=== PATIENT | female | born 1975 | race Two or more races ===

== ENCOUNTER 2025-01-15 15:19 | Emergency (ER) | payer MEDICAID, SELFPAY ==
[2025-01-15 15:31] VITALS: BP 118/73; PULSE 75; RESP 20; TEMP 36.7; O2SAT 95; BMI 26.8
--- NOTE | 2025-01-15 15:34 | XR_ITS ---
Examination: PA lateral chest 2 views TECHNIQUE: Upright PA lateral chest 2 views Exam date and time: January 15, 2025 1603 hours INDICATIONS: Chest pain shortness of breath beginning 2 days ago FINDINGS: Normal heart size. Lungs are clear. The osseous structures are intact IMPRESSION: No active disease
[2025-01-15] MEDS: DEXAMETHASONE SOD PHOS INJ 10 MG/ML VIAL PO (15:40)
[2025-01-15] MEDS: ALBUTEROL/IPRATROPIUM (Duoneb) RT SOL 3 ML NEBU INH (15:43)
[2025-01-15 15:46] VITALS: PULSE 78; RESP 15; O2SAT 98
--- NOTE | 2025-01-15 16:54 | PD.ASTHM ---
ED Asthma RME/HPI General Chief Complaint: Shortness of Breath/Dyspnea Stated Complaint: DYSPNEA X 2 DAYS,PT HAS ASTHMA, PHLEGM BROWN/THICK Time Seen by Provider: 01/15/25 15:34 Arrival date/time: 01/15/25 15:19 49-year-old female with no significant medical problems presents for concerns for cough, congestion there are no other associated symptoms or aggravating factors no other modifying factors, patient denies taking medication before coming to ER today wheezing ongoing for last couple of days patient reports that she has dark-colored mucus Limitations: no limitations Related Data Previous Rx's ?Medication ?Instructions ?Recorded azithromycin 500 mg tablet See Rx Instructions PO .COMPLEX #6 01/15/25 tabs benzonatate 100 mg capsule 100 mg PO TID #14 caps 01/15/25 prednisone 10 mg tablet 30 mg (3 x 10 mg) PO BID 3 days 01/15/25 #18 tabs Allergies Allergy/AdvReac Type Severity Reaction Status Date / Time No Known Allergies Allergy Verified 01/15/25 15:24 Review of Systems Review of Systems Systems Reviewed: All systems reviewed, normal except as documented Constitutional Constitutional: Reports system reviewed and no additional complaints, except as documented and Denies fever(s) Eyes Eyes: Reports system reviewed and no additional complaints, except as documented and Denies blurry vision ENT Ears, Nose, Mouth, and Throat: Reports system reviewed and no additional complaints, except as documented, Reports nasal congestion and Reports nasal discharge Cardiovascular Cardiovascular: Reports system reviewed and no additional complaints, except as documented, Denies chest pain and Denies dyspnea Respiratory Respiratory: Reports system reviewed and no additional complaints, except as documented, Reports chest congestion, Reports cough, Denies dyspnea, Reports pain with cough and Reports wheezing Gastrointestinal Gastrointestinal: Reports system reviewed and no additional complaints, except as documented and Denies abdominal pain Integumentary/Breasts Skin/Breast: Reports system reviewed and no additional complaints, except as documented and Denies rash Neurologic Neurologic: Reports system reviewed and no additional complaints, except as documented and Reports as per HPI Allergic/Immunologic Allergic/Immunologic: Reports wheezing Past Medical History Social History SMOKING STATUS: Never smoker ED Exam General Limitations: Present no limitations General appearance: Present alert and in no apparent distress Head Head exam: Present atraumatic, normocephalic and normal inspection Eye Eye exam: Present normal appearance, PERRL and EOMI; Absent conjunctival injection ENT ENT exam: Present normal exam, normal oropharynx and mucous membranes moist Neck Neck exam: Present normal inspection, full ROM and trachea midline Chest Chest inspection: Present normal inspection and symmetric chest wall rise Respiratory Respiratory exam: Present normal lung sounds bilaterally; Absent respiratory distress, wheezes, stridor, accessory muscle use or prolonged expiratory phase Cardiovascular Cardiovascular exam: Present regular rate, normal rhythm and normal heart sounds Abdominal Exam Abdominal exam: Present soft and normal bowel sounds Extremities Exam Extremities exam: Present normal inspection and full ROM Back Exam Back exam: Present normal inspection and full ROM Neurological Exam Neurological exam: Present alert, oriented X3 and CN II-XII intact Psychiatric Psychiatric exam: Present normal affect and normal mood Skin Skin exam: Present warm, dry, intact and normal color Course Quality Measures none Orders Category Date Time Status Bedside Influenza A&B Antigen Test NOW Care 01/15/25 15:34 Completed XR chest 2V Stat Exams 01/15/25 15:34 Completed Albuterol/Ipratr Rt Geri [Duoneb Rt Geri] Med 01/15/25 15:34 Discontinued 3 ml INH X1 ONE Dexamethasone Inj [Decadron Inj] Med 01/15/25 15:34 Discontinued 10 mg PO X1 ONE Vital Signs Vital signs: Vital Signs Temperature 98.1 F 01/15/25 15:31 Pulse Rate 75 01/15/25 15:31 Respiratory Rate 20 01/15/25 15:31 Blood Pressure 118/73 01/15/25 15:31 Pulse Oximetry (%) 95 01/15/25 15:31 Oxygen Delivery Method Room Air 01/15/25 15:31 O2 saturation 95% r.a wnl Asthma MDM Narrative MDM Narrative:: 49-year-old female with no significant medical problems presents for concerns for cough, congestion there are no other associated symptoms or aggravating factors no other modifying factors, patient denies taking medication before coming to ER today wheezing ongoing for last couple of days patient reports that she has dark-colored mucus On exam patient well-appearing patient does not appear ill or toxic in no acute distress Chest x-ray and flu obtained Chest x-ray and flu both negative On exam patient has mild wheezing patient given breathing treatment as well as steroids Patient discharged home in no distress to follow-up with primary care doctor in the next 24 to 48 hours and for any worsening symptoms to return to the ER immediately Patient data External records reviewed:: [facility] previous records Clinical information provided by:: patient Social determinants that could affect healthcare access:: none Patient has the following chronic illnesses:: None How is presenting disease/condition affected by chronic disease/condition?: no chronic disease Evaluation data The following diagnostics were reviewed and interpreted by me:: lab results and radiology exam(s) Lab and/or radiology exams considered but not ordered:: Labs radiology obtain Interpretation Summary: By me Medications / Prescriptions Medications or Prescriptions considered but not ordered:: Given Medication administrations:: Medication Administration History Discontinued Medications Albuterol/Ipratropium (Albuterol/Ipratropium (Duoneb) Rt Geri 3 Ml Nebu) 3 ml INH X1 ONE Stop: 01/15/25 15:35 Last Admin: 01/15/25 15:43 Dose: 3 ml Documented By: JASEN Dexamethasone Sodium Phosphate (Dexamethasone Sod Phos Inj 10 Mg/Ml Vial) 10 mg PO X1 ONE Stop: 01/15/25 15:35 Last Admin: 01/15/25 15:40 Dose: 10 mg Documented By: Consultations Consultation(s) initiated? (list below): No Diagnosis Differential diagnosis asthma: Acute exacerbation, Status asthmaticus and Pneumonia Most likely diagnosis given after review of the tests above:: Asthma Admission Indicated Admission indicated?: not indicated Admission Request Was there a request for admission?: No Disposition Plan Disposition Plan: Discharge Discharge Attestation Discharge Attestation: The patient and all family members were given an opportunity to ask questions and understood the discharge instructions. Discharge instructions specifically effects, indications for sooner follow up or return to the emergency department, and the expected course of current diagnosis. Patient condition: Stable Discharge Plan Plan Patient Disposition: HOME (Self Care) Disposition Comment: Stable Prescriptions/Referrals Prescriptions/Med Rec: New prednisone 10 mg tablet 30 mg PO BID 3 Days Qty: 18 0RF benzonatate 100 mg capsule 100 mg PO TID Qty: 14 0RF azithromycin 500 mg tablet See Rx Instructions .ROUTE .COMPLEX Qty: 6 0RF Rx Instructions: take 500 mg today (day 1), then 250 mg for 4 days (days 2-5) Referrals: No Primary/Family,Physician [Primary Care Provider] - In 1 week Problem List Clinical Impression: Asthma with exacerbation Patient/Caregiver Discharge Instructions Education Materials: Asthma Action Plan Additional Instructions: Please follow up with your primary care doctor in the next 24-48hrs for any worsening symptoms return here immediately Print Language: Salvadorean Stand Alone Forms: Z[employer]re[employer] Award Info., Patient Portal Info Letter PA/BACK ORDER CLERK Supervising Physician PA/BACK ORDER CLERK Supervising Physician: Dr jarrell
== END 2025-01-15 17:14 | disposition home or self-care (01) ==
PROVIDERS: Emergency Provider Family Medicine
DX: J45.901 Unspecified asthma with (acute) exacerbation (principal)
CPT/HCPCS: 71046; 87400; 94640; 99283; A9270; J1100